=== PATIENT | male | born 1990 | race Caucasian/White ===

== ENCOUNTER 2023-05-26 12:50 | Emergency (ER) | payer SELFPAY ==
[2023-05-26] MEDS: traMADol 50 MG Tab PO STA (14:23)
== END 2023-05-26 15:00 | disposition home or self-care (01) ==
LOC: MW.ED 12:50 → EDBD 12:50 → MW.ED 15:00
DX: M10.9 Gout, unspecified (principal); F17.210 Nicotine dependence, cigarettes, uncomplicated; I10 Essential (primary) hypertension; Z79.899 Other long term (current) drug therapy; Z75.8 Other problems related to medical facilities and other health care
CPT/HCPCS: 99283; A9270